=== PATIENT | female | born 1955 | race Caucasian/White ===

== ENCOUNTER → 2016-05-17 | Outpatient (CLI) | payer OTHER ==
[~2016-05-17] VITALS: Ht 157.5 cm; Wt 80.3 kg
[~2016-05-17] MED LIST: ATEN50TA2 PO; CLAR1TAB2 PO; LISI20TA PO; NS 1,000 ML IV SCH; PROBCAP4 PO; PROPOFOL 200 MG/20 ML VIAL As Ordered ONE; ZOFR20TA PO
--- NOTE | 2016-05-17 11:54 | ROOR ---
Patient Name: Aurora Mason Procedure Date: 05/17/2016 11:32 AM Date of : 1955 Age: 60 Room: [facility] Gender: Female Note Status: Finalized Procedure: Colonoscopy to Cecum Indications: Screening for colorectal malignant neoplasm Providers: Joe Clarke MD Referring MD: Kip Clayton MD Requesting Provider: Medicines: Monitored Anesthesia Care Complications: No immediate complications. Procedure: Pre-Anesthesia Assessment: - The heart rate, respiratory rate, oxygen saturations, blood pressure, adequacy of pulmonary ventilation, and response to care were monitored throughout the procedure. The Colonoscope was introduced through the anus and advanced to the cecum, identified by appendiceal orifice and ileocecal valve. The colonoscopy was performed without difficulty. The patient tolerated the procedure well. The quality of the bowel preparation was excellent. Findings: The perianal and digital rectal examinations were normal. Non-bleeding internal hemorrhoids were found during retroflexion. The hemorrhoids were small and Grade I (internal hemorrhoids that do not prolapse). No other significant abnormalities were identified in a careful examination of the remainder of the colon. The exam was otherwise without abnormality on direct and retroflexion views. Impression: - Non-bleeding internal hemorrhoids. - The examination was otherwise normal on direct and retroflexion views. - No specimens collected. - The exam was otherwise normal to the cecum. Recommendation: - Patient has a contact number available for emergencies. The signs and symptoms of potential delayed complications were discussed with the patient. Return to normal activities tomorrow. Written discharge instructions were provided to the patient. - High fiber diet. - Discharge patient to home. - Continue present medications. - Repeat colonoscopy in 10 years for screening purposes. - Return to referring physician. - The findings and recommendations were discussed with the patient's family. Joe Clarke MD Joe Clarke MD 05/17/2016 11:54:15 AM This report has been signed electronically. Number of Addenda: 0 Note Initiated On: 05/17/2016 11:32 AM Estimated Blood Loss: Estimated blood loss: none.
[2016-05-17 12:26] VITALS: BP 134/81
== END | disposition home or self-care (01) ==
LOC: M OPP 10:06
PROVIDERS: ATTEND Internal Medicine Gastroenterology
DX: Z12.11 Encounter for screening for malignant neoplasm of colon (principal); K64.0 First degree hemorrhoids; I10 Essential (primary) hypertension; R12 Heartburn; Z92.21 Personal history of antineoplastic chemotherapy; Z79.899 Other long term (current) drug therapy

== ENCOUNTER → 2016-08-03 | Outpatient (REF) | payer OTHER ==
[~2016-08-03] MED LIST changes: -NS 1,000 ML IV SCH; -PROPOFOL 200 MG/20 ML VIAL As Ordered ONE
== END ==
LOC: M LAB REF 12:57
PROVIDERS: ATTEND Internal Medicine Medical Oncology
DX: C54.1 Malignant neoplasm of endometrium (principal)

== ENCOUNTER → 2016-09-29 | Outpatient (REF) | payer OTHER | LOC: M LAB REF 16:56 | PROVIDERS: ATTEND Specialist | DX: Z12.4 Encounter for screening for malignant neoplasm of cervix (principal); R87.610 Atypical squamous cells of undetermined significance on cytologic smear of cervix (ASC-US) ==

== ENCOUNTER → 2016-10-21 | Outpatient (CLI) | payer OTHER ==
[~2016-10-21] MED LIST changes: +GASTROGRAFIN SOLUTION 30ML (Q9963) As Ordered ONE; +ISOVUE-370 76% 100ML VIAL (Q9967) As Ordered ONE
[2016-10-21 13:59] LABS: BASO % 0.5 % (0.0-1.0); EOS # 0.1 K/mm3 (0.0-0.50); EOS % 1.4 % (0.0-3.0); LARGE UNSTAINED CELL # 0.1 K/mm3 (0.0-0.4); LARGE UNSTAINED CELL % 1.5 % (0.0-4.0); LYMPH # 1.3 K/mm3 (1.5-4.5); LYMPH % 15.6 % (24.0-44.0); MEAN CORPUSCULAR HEMOGLOBIN 32.5 pg (27.0-33.0); MEAN CORPUSCULAR HGB CONC 34.1 g/dl (32.0-36.5); MEAN CORPUSCULAR VOLUME 95.1 fl (80.0-96.0); MONO # 0.3 K/mm3 (0.0-0.8); MONO % 3.9 % (0.0-5.0); PLATELET COUNT, AUTOMATED 231 k/mm3 (150-450); RED CELL DISTRIBUTION WIDTH 12.9 % (11.5-14.5); WHITE BLOOD COUNT 7.7 K/mm3 (4.0-10.0)
[2016-10-21 14:32] LABS: ALBUMIN 3.8 GM/DL (3.2-5.2); ALBUMIN/GLOBULIN RATIO 1.19 (1.00-1.93); BILIRUBIN,TOTAL 0.6 MG/DL (0.2-1.0); CALCIUM LEVEL 9.6 MG/DL (8.8-10.2); CREATININE FOR GFR 1.06 MG/DL (0.55-1.02); GLOMERULAR FILTRATION RATE 56.1 (>45); POTASSIUM SERUM 4.3 MEQ/L (3.5-5.1)
--- NOTE | 2016-10-22 05:32 | REP ---
Clinical: History of endometrial cancer for follow up. Technique: Axial contrast enhanced images from the thoracic inlet to the upper abdomen using 100 ml Isovue 370 intravenous contrast material with coronal and sagittal re-formations. Comparison: 04/27/2016. Findings: The bilateral lung cruz are relatively well aerated and essentially symmetric. No focal consolidation, obvious/definite nodule or mass lesion is appreciated. There is a small focal area of nodularity in the deep right lung base with adjacent interstitial changes and scarring. While findings may reflect chronic change, the soft tissue focus measures approximately 8 mm and may be slightly more prominent than prior examination. No pleural effusion. No pneumothorax. Tracheobronchial tree is patent. No obvious axillary, hilar, or mediastinal adenopathy. Mediastinum demonstrates normal thoracic aorta and heart/pericardium. Surrounding musculoskeletal structures are intact and normal for age. Impression: 1. Chronic-appearing age-related changes throughout the lung cruz without definite consolidation, mass or metastatic disease. No adenopathy. 2. A small focus of progressive scarring versus active lesion in the deep right lung base as described above. Given the patient's history of endometrial carcinoma, continued follow-up may be warranted. Signed by Surya Bolden MD 10/22/2016 05:25 A
--- NOTE | 2016-10-22 05:40 | REP ---
Clinical: Endometrial carcinoma for reevaluation and follow-up. Technique: Axial contrast enhanced images from the lung bases to the pubic symphysis new oozing oral and 100 ml Isovue 370 intravenous contrast material with pre and delayed images of the abdomen as well as coronal and sagittal re-formations. Comparison: 04/07/2016. Findings: Liver, spleen, pancreas, gallbladder, bilateral adrenal glands and kidneys appear normal. The enteric system is without obstruction or acute inflammatory process. Scattered colonic and sigmoid diverticula noted without acute diverticulitis. Pelvis demonstrates normal bladder and evidence for prior hysterectomy. Postsurgical granulation tissue in the midline anterior subcutaneous tissues is suggested and appears relatively similar to prior examination. No pelvic fluid or ascites. No obvious intraperitoneal or retroperitoneal adenopathy and no obvious pelvic sidewall adenopathy is appreciated. Subtle lymph node in the left inguinal canal / groin measures 12.2 mm and appears slightly more prominent than prior examination (image 133). Abdominal aorta and vasculature appears normal. Surrounding musculoskeletal structures are intact without focal osseous abnormality. Impression: 1. Postsurgical changes including stable granulation tissue in the anterior abdominal subcutaneous tissues. 2. Left inguinal/groin lymph node measuring 12.2 mm is slightly more prominent than prior examination and correlation/follow-up possibly with ultrasound may be warranted. 3. Scattered diverticula without acute diverticulitis. 4. No ascites, abdominal pelvic adenopathy, mass lesion or metastatic disease appreciated. Signed by Surya Bolden MD 10/22/2016 05:32 A
[2016-10-22 09:59] LABS: CA 125 14.6 U/ML (<30.2)
== END ==
LOC: M RAD 13:02
PROVIDERS: ATTEND Internal Medicine Medical Oncology
DX: C54.1 Malignant neoplasm of endometrium (principal)

== ENCOUNTER → 2017-01-21 | Outpatient (CLI) | payer OTHER ==
--- NOTE | 2017-01-21 13:58 | REP ---
CT of the chest with IV contrast: Comparison is the most repeat prior study of 10/21/2016. On the comparison study. There is a nodule in the deep sulcus of the right lung measuring 8 x 9 mm. On the study today this nodule measures 10 x 13 mm, therefore the possibility of lung metastasis is raised. Consider radionuclide PET scan. There are no other lung masses or nodules. There are no acute infiltrates or effusions. There is no mediastinal, hilar or axillary adenopathy. Thoracic aorta is unremarkable. Cardiac size is normal. There are no lytic, blastic or destructive skeletal changes. Impression: The patient's known nodule in the deep sulcus of the right lung continues to increase in size, suggestive of metastasis. Consider radionuclide PET scan. Signed by Jonathan Serrano MD 01/21/2017 01:49 P
--- NOTE | 2017-01-21 14:12 | REP ---
CT of the abdomen pelvis without and with IV contrast: After IV contrast dual phase scanning is performed during the arterial phase of enhancement and later during the equilibrium phase of enhancement. Comparisons are 10/21/2016 and 04/27/2016. The hepatic parenchyma is homogeneous on all phases of the study. The gallbladder, pancreas and spleen are unremarkable and unchanged. The adrenals, kidneys and abdominal aorta are unremarkable. There is no retroperitoneal adenopathy. No mesenteric adenopathy. No ascites. The bowel and mesentery are unremarkable. Pelvis: There is a hysterectomy. Vaginal cuff and adnexa are unremarkable. There is no adenopathy or ascites. The bladder is unremarkable. There are occasional diverticula in the sigmoid colon without diverticulitis. There is a left inguinal node today measuring 8 x 12 mm (9 x 12 mm of 10/21/2016 and 10 x 12 mm on 04/27/2016. Chronic stable postsurgical changes are again noted in the anterior pelvic wall. Impression: The patients left inguinal node appears stable in size. There is no evidence of adenopathy, ascites or metastatic disease. Signed by Jonathan Serrano MD 01/21/2017 02:03 P
== END ==
LOC: M RAD 11:05
PROVIDERS: ATTEND Internal Medicine Medical Oncology
DX: C54.1 Malignant neoplasm of endometrium (principal); R91.1 Solitary pulmonary nodule
CPT/HCPCS: 71260; 74178; 86304; Q9963; Q9967

== ENCOUNTER → 2017-01-26 | Outpatient (CLI) | payer OTHER ==
[~2017-01-26] MED LIST changes: -GASTROGRAFIN SOLUTION 30ML (Q9963) As Ordered ONE; -ISOVUE-370 76% 100ML VIAL (Q9967) As Ordered ONE
--- NOTE | 2017-01-30 09:47 | REP ---
Whole body PET CT scan: Comparison is the CT of the abdomen pelvis dated 01/21/2017. Whole-body scanning is performed from skull base to the upper thighs. Neck and supraclavicular areas: There are no hypermetabolic foci. Chest: There are no hypermetabolic foci. Abdomen, pelvis and upper thighs: There are no hypermetabolic foci. Impression: Negative whole-body PET CT scan. There are no hypermetabolic foci. The study is performed with 10 mCi of F 18 Signed by Jonathan Serrano MD 01/30/2017 09:38 A
== END ==
LOC: M PLARAD 09:16
PROVIDERS: ATTEND Internal Medicine Medical Oncology
DX: C54.9 Malignant neoplasm of corpus uteri, unspecified (principal); R91.1 Solitary pulmonary nodule
CPT/HCPCS: 78815; A9552

== ENCOUNTER → 2017-03-10 | Outpatient (REF) | payer OTHER | LOC: M LAB REF 17:21 | PROVIDERS: ATTEND Specialist | DX: R87.615 Unsatisfactory cytologic smear of cervix (principal) ==

== ENCOUNTER → 2017-05-09 | Outpatient (CLI) | payer OTHER ==
[~2017-05-09] MED LIST changes: -ATEN50TA2 PO; -CLAR1TAB2 PO; +GASTROGRAFIN SOLUTION 30ML (Q9963) As Ordered; +ISOVUE-370 76% 100ML VIAL (Q9967) As Ordered; -LISI20TA PO; -PROBCAP4 PO; -ZOFR20TA PO
[2017-05-09 10:25] LABS: BASO # 0.1 10^3/uL (0.0-0.2); BASO % 0.7 % (0.0-1.0); EOS # 0.2 10^3/uL (0.0-0.50); EOS % 2.5 % (0.0-3.0); HEMATOCRIT 39.9 % (36.0-47.0); HEMOGLOBIN 13.6 g/dl (12.0-16.0); IMMATURE GRANULOCYTE % 0.3 % (0-0); LYMPH % 14.5 % (24.0-44.0); MEAN CORPUSCULAR HEMOGLOBIN 32.2 pg (27.0-33.0); MEAN CORPUSCULAR HGB CONC 34.1 g/dl (32.0-36.5); MEAN CORPUSCULAR VOLUME 94.3 fl (80.0-96.0); MONO # 0.4 10^3/uL (0.0-0.8); MONO % 5.8 % (0.0-5.0); NEUTROPHILS # 5.3 10^3/uL (1.8-7.7); NEUTROPHILS % 76.2 % (36.0-66.0); PLATELET COUNT, AUTOMATED 259 10^3/uL (150-450); RED BLOOD COUNT 4.23 10^6/uL (4.00-5.40); RED CELL DISTRIBUTION WIDTH 11.6 % (11.5-14.5); WHITE BLOOD COUNT 6.9 10^3/uL (4.0-10.0)
[2017-05-09 10:53] LABS: ALBUMIN/GLOBULIN RATIO 1.18 (1.00-1.93); ALKALINE PHOSPHATASE 76 U/L (45-117); ALT/SGPT 21 U/L (12-78); ANION GAP 6 MEQ/L (8-16); AST/SGOT 14 U/L (7-37); BILIRUBIN,TOTAL 0.6 MG/DL (0.2-1.0); BLOOD UREA NITROGEN 19 MG/DL (7-18); CALCIUM LEVEL 9.4 MG/DL (8.8-10.2); CARBON DIOXIDE LEVEL 30 MEQ/L (21-32); CHLORIDE LEVEL 103 MEQ/L (98-107); CREATININE FOR GFR 1.09 MG/DL (0.55-1.02); GLOMERULAR FILTRATION RATE 54.1 (>45); GLUCOSE, FASTING 106 MG/DL (80-110); POTASSIUM SERUM 4.5 MEQ/L (3.5-5.1); SODIUM LEVEL 139 MEQ/L (136-145); TOTAL PROTEIN 7.4 GM/DL (6.4-8.2)
[2017-05-10 07:44] LABS: CA 125 14.9 U/ML (<30.2)
== END ==
LOC: M RAD 09:46
DX: C54.1 Malignant neoplasm of endometrium (principal)
CPT/HCPCS: Q9963

== ENCOUNTER → 2017-08-26 | Outpatient (REF) | payer OTHER ==
[2017-08-26 14:12] LABS: BASO # 0.1 10^3/uL (0.0-0.2); BASO % 0.8 % (0.0-1.0); EOS # 0.2 10^3/uL (0.0-0.50); EOS % 1.7 % (0.0-3.0); HEMATOCRIT 37.7 % (36.0-47.0); HEMOGLOBIN 13.1 g/dl (12.0-15.5); IMMATURE GRANULOCYTE % 0.3 % (0-3.0); LYMPH # 1.9 10^3/uL (1.5-4.5); LYMPH % 21.6 % (24.0-44.0); MEAN CORPUSCULAR HEMOGLOBIN 32.3 pg (27.0-33.0); MEAN CORPUSCULAR HGB CONC 34.7 g/dl (32.0-36.5); MEAN CORPUSCULAR VOLUME 92.9 fl (80.0-96.0); MONO # 0.6 10^3/uL (0.0-0.8); MONO % 6.7 % (0.0-5.0); NEUTROPHILS % 68.9 % (36.0-66.0); PLATELET COUNT, AUTOMATED 267 10^3/uL (150-450); RED BLOOD COUNT 4.06 10^6/uL (4.00-5.40); RED CELL DISTRIBUTION WIDTH 11.7 % (11.5-14.5); WHITE BLOOD COUNT 8.7 10^3/uL (4.0-10.0)
[2017-08-26 14:33] LABS: ALBUMIN/GLOBULIN RATIO 1.18 (1.00-1.93); ALKALINE PHOSPHATASE 87 U/L (45-117); ALT/SGPT 20 U/L (12-78); ANION GAP 7 MEQ/L (8-16); AST/SGOT 15 U/L (7-37); BILIRUBIN,TOTAL 0.6 MG/DL (0.2-1.0); BLOOD UREA NITROGEN 34 MG/DL (7-18); CALCIUM LEVEL 9.4 MG/DL (8.8-10.2); CARBON DIOXIDE LEVEL 28 MEQ/L (21-32); CHLORIDE LEVEL 104 MEQ/L (98-107); CREATININE FOR GFR 1.09 MG/DL (0.55-1.30); GLOMERULAR FILTRATION RATE 54.1 (>45); GLUCOSE, FASTING 115 MG/DL (70-100); POTASSIUM SERUM 4.4 MEQ/L (3.5-5.1); SODIUM LEVEL 139 MEQ/L (136-145); TOTAL PROTEIN 7.4 GM/DL (6.4-8.2)
[2017-08-26 15:00] LABS: CA 125 13.6 U/ML (<30.2)
== END ==
LOC: M LABDRWAD 13:47
DX: C54.1 Malignant neoplasm of endometrium (principal)

== ENCOUNTER → 2017-10-03 | Outpatient (REF) | payer OTHER ==
[2017-10-12 00:06] LABS: HPV HYBRID CAPTURE II Negative (Negative)
== END ==
LOC: M LAB REF 09:30
DX: C54.1 Malignant neoplasm of endometrium (principal)

== ENCOUNTER → 2017-12-27 | Outpatient (REF) | payer OTHER ==
[2017-12-27 13:50] LABS: BASO # 0.1 10^3/uL (0.0-0.2); EOS # 0.1 10^3/uL (0.0-0.50); EOS % 2.1 % (0.0-3.0); HEMATOCRIT 37.9 % (36.0-47.0); HEMOGLOBIN 12.9 g/dl (12.0-15.5); IMMATURE GRANULOCYTE % 0.3 % (0-3.0); LYMPH # 1.3 10^3/uL (1.5-4.5); LYMPH % 21.3 % (24.0-44.0); MEAN CORPUSCULAR HEMOGLOBIN 31.9 pg (27.0-33.0); MEAN CORPUSCULAR VOLUME 93.6 fl (80.0-96.0); MONO # 0.4 10^3/uL (0.0-0.8); MONO % 6.8 % (0.0-5.0); NEUTROPHILS # 4.3 10^3/uL (1.8-7.7); NEUTROPHILS % 68.5 % (36.0-66.0); PLATELET COUNT, AUTOMATED 251 10^3/uL (150-450); RED BLOOD COUNT 4.05 10^6/uL (4.00-5.40); RED CELL DISTRIBUTION WIDTH 11.9 % (11.5-14.5); WHITE BLOOD COUNT 6.2 10^3/uL (4.0-10.0)
[2017-12-27 14:12] LABS: ALBUMIN 3.7 GM/DL (3.2-5.2); ALBUMIN/GLOBULIN RATIO 1.09 (1.00-1.93); ALKALINE PHOSPHATASE 75 U/L (45-117); ALT/SGPT 17 U/L (12-78); ANION GAP 9 MEQ/L (8-16); AST/SGOT 12 U/L (7-37); BLOOD UREA NITROGEN 25 MG/DL (7-18); CALCIUM LEVEL 9.4 MG/DL (8.8-10.2); CARBON DIOXIDE LEVEL 27 MEQ/L (21-32); CHLORIDE LEVEL 105 MEQ/L (98-107); CREATININE FOR GFR 1.02 MG/DL (0.55-1.30); GLOMERULAR FILTRATION RATE 58.3 (>45); GLUCOSE, FASTING 105 MG/DL (70-100); POTASSIUM SERUM 4.4 MEQ/L (3.5-5.1); SODIUM LEVEL 141 MEQ/L (136-145); TOTAL PROTEIN 7.1 GM/DL (6.4-8.2)
[2017-12-28 08:00] LABS: CA 125 11.8 U/ML (<30.2)
== END ==
LOC: M LABDRWAD 12:26
DX: Z00.00 Encounter for general adult medical examination without abnormal findings (principal)
CPT/HCPCS: 80053

== ENCOUNTER → 2018-05-11 | Outpatient (CLI) | payer OTHER ==
[~2018-05-11] MED LIST changes: +ATEN50TA2 PO; +BILB500C PO; +CLAR1TAB2 PO; +FISH100042 PO; -GASTROGRAFIN SOLUTION 30ML (Q9963) As Ordered; +GASTROGRAFIN SOLUTION 30ML (Q9963) As Ordered ONE; -ISOVUE-370 76% 100ML VIAL (Q9967) As Ordered; +ISOVUE-370 76% 100ML VIAL (Q9967) As Ordered ONE; +LISI20TA PO; +PROBCAP4 PO; +TURM500C PO; +VITA500079 PO; +ZOFR4TAB16 PO
[2018-05-11 13:06] LABS: HEMATOCRIT 41.2 % (36.0-47.0); HEMOGLOBIN 13.8 g/dl (12.0-15.5); MEAN CORPUSCULAR HEMOGLOBIN 31.3 pg (27.0-33.0); MEAN CORPUSCULAR HGB CONC 33.5 g/dl (32.0-36.5); MEAN CORPUSCULAR VOLUME 93.4 fl (80.0-96.0); PLATELET COUNT, AUTOMATED 289 10^3/uL (150-450); RED BLOOD COUNT 4.41 10^6/uL (4.00-5.40); WHITE BLOOD COUNT 9.6 10^3/uL (4.0-10.0)
[2018-05-11 13:34] LABS: ALBUMIN 3.9 GM/DL (3.2-5.2); BILIRUBIN,TOTAL 0.8 MG/DL (0.2-1.0); CALCIUM LEVEL 9.6 MG/DL (8.8-10.2); CREATININE FOR GFR 1.16 MG/DL (0.55-1.30); GLOMERULAR FILTRATION RATE 50.2 (>45); POTASSIUM SERUM 4.3 MEQ/L (3.5-5.1); TOTAL PROTEIN 7.4 GM/DL (6.4-8.2)
--- NOTE | 2018-05-12 05:43 | REP ---
Clinical: History of endometrial carcinoma. Technique: Axial contrast enhanced images from the lung bases to the pubic symphysis using oral (per protocol) and 100 ml Isovue 370 intravenous contrast material with delayed images of the abdomen as well as coronal and sagittal re-formations. Comparison: 05/09/2017. Findings: Small focus of presumed scarring at the right lung base. Visualized heart and pericardium normal. Liver, spleen, pancreas, gallbladder, bilateral adrenal glands and kidneys are normal. The enteric system is without obstruction or acute inflammatory process. Pelvis demonstrates normal bladder and evidence of prior hysterectomy. No ascites. No adenopathy. No free air. No evidence for recurrence or focal mass lesion. Osseous structures demonstrate age-related changes without focal abnormality. Impression: 1. Minimal scarring at the right lung base. 2. Evidence of prior hysterectomy. 3. No evidence for recurrence or metastatic disease. No acute abdominopelvic pathology appreciated. Electronically Signed by Surya Bolden MD 05/12/2018 05:35 A
--- NOTE | 2018-05-12 05:52 | REP ---
Clinical: History of endometrial carcinoma. Technique: Axial contrast enhanced images from the thoracic inlet to the upper abdomen with coronal and sagittal re-formations using 100 ml Isovue 370 intravenous contrast material. Comparison: 05/09/2017. Findings: A subtle area of opacity is identified in the deep right posterior sulcus which appears slightly more prominent than recent prior examination but unchanged when compared to 10/21/2016 may represent small area of chronic scarring with superimposed transient atelectasis. The remainder of the lung cruz are well-aerated and clear. No further consolidation, significant nodule or mass lesion. No effusion. No pneumothorax. Tracheobronchial tree is patent. No axillary, hilar, or mediastinal adenopathy. Normal thoracic aorta, pulmonary vasculature and heart/pericardium noted. Surrounding musculoskeletal structures are intact and normal. Upper abdomen demonstrates normal bilateral adrenal glands. Impression: 1. Small focus of opacity at the site of prior scarring in the deep right posterior sulcus is essentially unchanged when compared to 10/21/2016 and likely represents an area of scarring with superimposed transient atelectasis. PET-CT in the interval between 10/21/2016 and 05/09/2017 was negative and without associated hypermetabolic activity. 2. Otherwise normal contrast enhanced chest CT without further mediastinal or pleuroparenchymal process. Electronically Signed by Surya Bolden MD 05/12/2018 05:44 A
[2018-05-12 10:40] LABS: CA 125 11.8 U/ML (<30.2)
== END ==
LOC: M RAD 12:02
PROVIDERS: ATTEND Internal Medicine Medical Oncology
DX: Z85.42 Personal history of malignant neoplasm of other parts of uterus (principal); J98.4 Other disorders of lung
CPT/HCPCS: 71260; 74177; 80053; 85027; 86304; Q9963; Q9967

== ENCOUNTER → 2018-05-24 | Outpatient (CLI) | payer OTHER ==
[~2018-05-24] MED LIST changes: -GASTROGRAFIN SOLUTION 30ML (Q9963) As Ordered ONE; -ISOVUE-370 76% 100ML VIAL (Q9967) As Ordered ONE
--- NOTE | 2018-05-24 09:34 | REPMRS ---
Patient History The patient states she has not had a clinical breast exam in over a year. Family history of breast cancer at age 50 or over in maternal cousin, prostate cancer at age 50 or over in father. Digital Mammo Screening Bilat: May 24, 2018 - Exam #: [id number] Bilateral CC and MLO view(s) were taken. Technologist: Nicole Meyer, Technologist No prior studies available for comparison. FINDINGS: There are scattered fibroglandular densities. There is no evidence of dominant mass, architectural distortion, or clustered microcalcification typical of malignancy. 3-D tomosynthesis shows no additional findings. Assessment: BI-RADS/ACR category 1 mammogram. Negative Mammogram. Recommendation Routine screening mammogram of both breasts in 1 year (for women over age 40). This patient's Lifetime Breast Cancer RIsk is estimated at 5.6 %. This mammogram was interpreted with the aid of an FDA-approved computer-aided dectection system. Electronically Signed By: Paramjit Perez MD 05/24/18 0933
== END ==
LOC: M RAD 08:32
PROVIDERS: ATTEND Internal Medicine Medical Oncology
DX: Z12.31 Encounter for screening mammogram for malignant neoplasm of breast (principal); Z85.42 Personal history of malignant neoplasm of other parts of uterus

== ENCOUNTER → 2018-11-06 | Outpatient (REF) | payer OTHER ==
[2018-11-06 12:43] LABS: HEMATOCRIT 39.5 % (36.0-47.0); HEMOGLOBIN 13.1 g/dl (12.0-15.5); MEAN CORPUSCULAR HGB CONC 33.2 g/dl (32.0-36.5); MEAN CORPUSCULAR VOLUME 96.6 fl (80.0-96.0); PLATELET COUNT, AUTOMATED 242 10^3/uL (150-450); RED BLOOD COUNT 4.09 10^6/uL (4.00-5.40); WHITE BLOOD COUNT 4.7 10^3/uL (4.0-10.0)
[2018-11-06 12:49] LABS: ALBUMIN 3.7 GM/DL (3.2-5.2); ALT/SGPT 15 U/L (12-78); BILIRUBIN,TOTAL 0.7 MG/DL (0.2-1.0); BLOOD UREA NITROGEN 23 MG/DL (7-18); CALCIUM LEVEL 9.5 MG/DL (8.8-10.2); CARBON DIOXIDE LEVEL 28 MEQ/L (21-32); CHLORIDE LEVEL 108 MEQ/L (98-107); CREATININE FOR GFR 0.99 MG/DL (0.55-1.30); GLOMERULAR FILTRATION RATE > 60.0 (>45); GLUCOSE, FASTING 103 MG/DL (70-100); POTASSIUM SERUM 4.5 MEQ/L (3.5-5.1); SODIUM LEVEL 142 MEQ/L (136-145); TOTAL PROTEIN 6.9 GM/DL (6.4-8.2)
[2018-11-07 09:02] LABS: CA 125 10.8 U/ML (<30.2)
== END ==
LOC: M LABDRWAD 12:13
PROVIDERS: ATTEND Internal Medicine Medical Oncology
DX: Z12.31 Encounter for screening mammogram for malignant neoplasm of breast (principal)

== ENCOUNTER → 2018-12-07 | Outpatient (REF) | payer OTHER ==
[~2018-12-07] MED LIST changes: -LISI20TA PO; +LISI20TA18 PO
[2018-12-09 14:10] LABS: HPV HYBRID CAPTURE II Negative (Negative)
== END ==
LOC: M LAB REF 17:14
PROVIDERS: ATTEND Specialist
DX: Z12.72 Encounter for screening for malignant neoplasm of vagina (principal); N95.2 Postmenopausal atrophic vaginitis

== ENCOUNTER → 2019-05-21 | Outpatient (REF) | payer OTHER ==
[~2019-05-21] MED LIST changes: -LISI20TA18 PO; +LISI20TA19 PO
[2019-05-21 17:19] LABS: BASO # 0.1 10^3/uL (0.0-0.2); BASO % 0.8 % (0.0-1.0); EOS # 0.2 10^3/uL (0.0-0.5); EOS % 1.7 % (0.0-3.0); HEMATOCRIT 38.8 % (36.0-47.0); HEMOGLOBIN 13.3 g/dl (12.0-15.5); LYMPH # 2.3 10^3/uL (1.5-5.0); LYMPH % 22.4 % (24.0-44.0); MEAN CORPUSCULAR HEMOGLOBIN 32.7 pg (27.0-33.0); MEAN CORPUSCULAR HGB CONC 34.3 g/dl (32.0-36.5); MEAN CORPUSCULAR VOLUME 95.3 fl (80.0-96.0); MONO # 0.7 10^3/uL (0.0-0.8); MONO % 6.3 % (0.0-5.0); NEUTROPHILS % 68.3 % (36.0-66.0); PLATELET COUNT, AUTOMATED 351 10^3/uL (150-450); RED BLOOD COUNT 4.07 10^6/uL (4.00-5.40); WHITE BLOOD COUNT 10.3 10^3/uL (4.0-10.0)
[2019-05-21 17:36] LABS: ALBUMIN 3.8 GM/DL (3.2-5.2); BILIRUBIN,TOTAL 0.9 MG/DL (0.2-1.0); CALCIUM LEVEL 9.3 MG/DL (8.8-10.2); CREATININE FOR GFR 1.01 MG/DL (0.55-1.30); GLOMERULAR FILTRATION RATE 58.7 (>45); POTASSIUM SERUM 4.3 MEQ/L (3.5-5.1); TOTAL PROTEIN 7.2 GM/DL (6.4-8.2)
[2019-05-22 10:54] LABS: CA 125 10.6 U/ML (<30.2)
== END ==
LOC: M LAB REF 16:13
PROVIDERS: ATTEND Nurse Practitioner Family
DX: Z85.42 Personal history of malignant neoplasm of other parts of uterus (principal)

== ENCOUNTER → 2019-05-28 | Outpatient (CLI) | payer OTHER ==
--- NOTE | 2019-05-28 13:16 | REPMRS ---
Patient History The patient states she has not had a clinical breast exam in over a year. Patient has history of endometrial cancer at age 59. Family history of breast cancer at age 50 or over in maternal cousin, prostate cancer at age 50 or over in father. 3D TOMOSYNTHESIS WAS PERFORMED. [facility] lifetime risk for breast cancer is 5.4%. Digital Mammo Screening Bilat: May 28, 2019 - Exam #: [id number] Bilateral CC and MLO view(s) were taken. Technologist: Nicole Meyer, Technologist Prior study comparison: May 24, 2018, bilateral digital mammo screening bilat performed at [facility]. FINDINGS: There are scattered fibroglandular densities. There has been no change in the appearance of the mammogram from the prior studies. There is a mild amount of residual fibroglandular tissue which is fairly symmetric. There is no interval development of dominant mass, architectural distortion, or clustered microcalcification suggestive of malignancy. Assessment: BI-RADS/ACR category 1 mammogram. Negative Mammogram. Recommendation Routine screening mammogram in 1 year (for women over age 40). This mammogram was interpreted with the aid of an FDA-approved computer-aided dectection system. Electronically Signed By: Jonathan Hernandez MD 05/28/19 [id number]
== END ==
LOC: M RAD 11:38
PROVIDERS: ATTEND Nurse Practitioner Family
DX: Z12.31 Encounter for screening mammogram for malignant neoplasm of breast (principal); Z85.42 Personal history of malignant neoplasm of other parts of uterus; Z80.3 Family history of malignant neoplasm of breast; Z80.42 Family history of malignant neoplasm of prostate

== ENCOUNTER → 2019-06-12 | Outpatient (CLI) | payer OTHER ==
[~2019-06-12] MED LIST changes: +ISOVUE-370 76% 100ML VIAL (Q9967) As Ordered ONE
--- NOTE | 2019-06-12 15:01 | REP ---
Clinical: History of uterine carcinoma. Technique: Axial contrast enhanced images from the thoracic inlet to the upper abdomen with coronal and sagittal re-formations using 75 ml Isovue 370 intravenous contrast material. Comparison: 05/11/2018. Findings: Areas of scarring primarily involving the right mid to lower lung zone, left lower lobe and deep posterior right sulcus remains stable. No new acute nodule, consolidation or mass. No pleural effusion. No pneumothorax. Tracheobronchial tree is patent. No significant adenopathy. Mediastinum demonstrates relatively normal thoracic aorta, pulmonary vasculature and heart/pericardium. Surrounding musculoskeletal structures are intact without focal acute abnormality. Limited upper abdomen demonstrates normal bilateral adrenal glands. Impression: Chronic stable scattered scarring. No acute mediastinal or pleuroparenchymal process. No evidence for metastatic disease. Electronically Signed by Surya Bolden MD 06/12/2019 02:51 P
== END ==
LOC: M RAD 14:22
PROVIDERS: ATTEND Internal Medicine Medical Oncology
DX: C54.9 Malignant neoplasm of corpus uteri, unspecified (principal)
CPT/HCPCS: 71260; Q9967

== ENCOUNTER → 2020-04-03 | Outpatient (REF) | payer MEDICARE, OTHER ==
[~2020-04-03] MED LIST changes: -ISOVUE-370 76% 100ML VIAL (Q9967) As Ordered ONE; -LISI20TA19 PO; +LISI20TA35 PO
== END ==
LOC: M SFHCWAGY 13:21
PROVIDERS: ATTEND Specialist
DX: Z12.4 Encounter for screening for malignant neoplasm of cervix (principal)
CPT/HCPCS: 87624; G0101; G0123

== ENCOUNTER → 2020-04-03 | Outpatient (CLI) | payer MEDICARE, OTHER | LOC: M WHC 11:48 | PROVIDERS: ATTEND Specialist | DX: Z53.9 Procedure and treatment not carried out, unspecified reason (principal); Z12.31 Encounter for screening mammogram for malignant neoplasm of breast ==

== ENCOUNTER → 2020-05-29 | Outpatient (CLI) | payer MEDICARE, MEDICAID ==
[~2020-05-29] MED LIST changes: +CALCCAP4 PO; +KP V1TAB PO; +MAGN400T14 PO
--- NOTE | 2020-05-29 17:05 | REPMRS ---
Patient History The patient states she had a clinical breast exam in April 2020. Family history of breast cancer at age 50 or over in maternal cousin, prostate cancer at age 50 or over in father. Digital Woman Screen Mammo: May 29, 2020 - Exam #: [id number] Bilateral CC and MLO view(s) were taken. Technologist: Nicole Meyer, Technologist Prior study comparison: May 28, 2019, bilateral digital mammo screening bilat, performed at [facility]. May 24, 2018, bilateral digital mammo screening bilat, performed at [facility]. FINDINGS: There are scattered fibroglandular densities. The Volpara volumetric breast density category is:B. There has been no change in the appearance of the mammogram from the prior studies. There is a mild amount of scattered fibroglandular density which is fairly symmetric. There is no interval development of dominant mass, architectural distortion, or grouped microcalcification suggestive of malignancy. 3-D tomosynthesis shows no additional findings. Assessment: BI-RADS/ACR category 1 mammogram. Negative Mammogram. Recommendation Routine screening mammogram of both breasts in 1 year (for women over age 40). This patient's [facility] Lifetime Breast Cancer Risk is estimated at 5.1 %. This mammogram was interpreted with the aid of an FDA-approved computer-aided dectection system. Electronically Signed By: Paramjit Perez MD 05/29/20 2157
== END ==
LOC: M WHC 13:55
PROVIDERS: ATTEND Specialist
DX: Z12.31 Encounter for screening mammogram for malignant neoplasm of breast (principal)

== ENCOUNTER → 2021-01-07 | Outpatient (CLI) | payer MEDICARE, MEDICAID ==
--- NOTE | 2021-01-07 14:41 | REP ---
INDICATION: PAIN IN LT KNEE AND RT ANKLE/FOOT HAS US 2ND TECHNIQUE: Five views FINDINGS: There is mild tricompartmental marginal osteophytosis and mild medial compartmental narrowing. There is no acute fracture, dislocation, or subluxation. IMPRESSION: Chronic changes as described above. <Electronically signed by Nishant Moss > 01/07/21 2008
--- NOTE | 2021-01-07 14:42 | REP ---
INDICATION: PAIN IN LT KNEE AND RT ANKLE/FOOT HAS US 2ND. COMPARISON: None. TECHNIQUE: Five views FINDINGS: There is moderate asymmetric joint space narrowing seen involving the 1st metatarsophalangeal joint with marginal osteophyte formation seen laterally. The remainder of the joint spaces are symmetric and relatively well maintained. There is no evidence of an acute fracture. There is a tiny plantar calcaneal heel spur. IMPRESSION: Chronic changes as described above. <Electronically signed by Nishant Moss > 01/07/21 0721
--- NOTE | 2021-01-07 15:31 | REP ---
INDICATION: R/O DVT XRAYS FIRST. COMPARISON: None. TECHNIQUE: Bilateral lower extremity duplex venous scanning is performed from the groin to the ankle level. FINDINGS: The deep veins are anechoic and fully compressible from the groin to the popliteal fossa in the left and right lower extremity. Color flow imaging is homogeneous. Spectral Doppler interrogation demonstrates intact respiratory variation in flow and normal manual augmentation of flow. There is no evidence of deep vein thrombosis in the femoropopliteal veins. The calf veins could not be visualized in either lower extremity due to patient body habitus and edema. IMPRESSION: No evidence of DVT in the femoropopliteal veins. <Electronically signed by Paramjit Perez > 01/07/21 [id number]
== END ==
LOC: M RAD 14:04
PROVIDERS: ATTEND Nurse Practitioner Family
DX: M79.661 Pain in right lower leg (principal); M79.662 Pain in left lower leg; M25.562 Pain in left knee; M25.571 Pain in right ankle and joints of right foot; M77.31 Calcaneal spur, right foot; M25.762 Osteophyte, left knee

== ENCOUNTER → 2021-03-23 | Outpatient (CLI) | payer MEDICAID, MEDICARE ==
--- NOTE | 2021-03-23 19:48 | ECHO ---
ECHOCARDIOGRAM DATE OF PROCEDURE: 03/23/2021 Age: Gender: Height: 157 cm Weight: 65.8 kg REFERRING PHYSICIAN: BERNARDO HOFFMANN MD INDICATION: Shortness of breath, localized edema unspecified, abnormal ECG. MEASUREMENTS: 2D Measurements: Aortic root 3.3 cm Left atrium 3.5 cm Left atrial volume index 17 Inferior septum 0.96 cm Posterior wall 0.83 cm Left ventricle diastole 4.1 cm LVOT 2.0 cm Inferior vena cava 1.5 cm Doppler Measurements: No aortic regurgitation Aortic valve velocity 143 cm/s LVOT velocity 108 cm/s LVOT VTI 24.4.0 cm Very mild mitral regurgitation Mitral E velocity 48.8 cm/s Mitral A velocity 78.4 cm/s Mitral deceleration time 264 msec Very mild tricuspid regurgitation Estimated right ventricular systolic pressure 23-28 mmHg Estimated right atrial pressure 5-10 mmHg Mild pulmonic regurgitation Pulmonary acceleration time 153 msec MITRAL ANNULAR TISSUE DOPPLER E prime septal 4.9 cm/s DESCRIPTION: Rhythm was sinus. Image quality was good. This was a 2D, M-mode, color flow Doppler, and pulsed wave Doppler examination including mitral annular tissue Doppler. No pericardial effusion. CONCLUSIONS: 1. Normal left ventricle internal dimensions and wall thickness. Normal regional LV wall motion and wall thickening. Normal LV systolic function. Grade 1 LV diastolic function. LVF 60% (3-D). 2. Mild aortic valve sclerosis of a 3-cusp aortic valve. No aortic regurgitation. 3. Otherwise normal-appearing echocardiogram and Doppler findings.
== END ==
LOC: M CARPUL 09:08
PROVIDERS: ATTEND Internal Medicine Cardiovascular Disease
DX: R06.02 Shortness of breath (principal); I35.8 Other nonrheumatic aortic valve disorders

== ENCOUNTER → 2022-08-16 | Outpatient (CLI) | payer MEDICARE, MEDICAID | LOC: M WHC 12:39 | PROVIDERS: ATTEND Student in an Organized Health Care Education/Training Program | DX: Z00.01 Encounter for general adult medical examination with abnormal findings (principal) ==

== ENCOUNTER → 2025-02-25 | Outpatient (CLI) | payer MEDICARE, MEDICAID ==
[2025-02-25 13:29] LABS: BASO # 0.0 10^3/uL (0.0-0.2); BASO % 0.7 % (0.0-1.0); EOS # 0.1 10^3/uL (0.0-0.5); EOS % 2.2 % (0.0-3.0); LYMPH # 1.6 10^3/uL (1.5-5.0); LYMPH % 26.8 % (24.0-44.0); MONO # 0.5 10^3/uL (0.0-0.8); MONO % 7.7 % (2.0-8.0); NEUTROPHILS # 3.6 10^3/uL (1.5-8.5); NEUTROPHILS % 62.3 % (36.0-66.0); PLATELET COUNT, AUTOMATED 258 10^3/uL (150-450)
[2025-02-25 13:36] LABS: ALT/SGPT 19.0 U/L (7.0-40); AST/SGOT 21.0 U/L (<34); CALCIUM LEVEL 10.2 MG/DL (8.3-10.6); CARBON DIOXIDE LEVEL 30.0 MMOL/L (20-31); CHLORIDE LEVEL 104.0 MMOL/L (98-107); CHOLESTEROL LEVEL 145.0 MG/DL (<200); CHOLESTEROL RISK RATIO 2.75 (<5); CREATININE FOR GFR 0.9 MG/DL (0.55-1.30); GLOMERULAR FILTRATION RATE 68.8 (>39); LDL CHOLESTEROL 65.1 MG/DL (<100); NON-HDL-C 92.3 MG/DL; POTASSIUM SERUM 4.6 MMOL/L (3.5-5.1); SODIUM LEVEL 143.0 MMOL/L (136-145); TRIGLYCERIDES LEVEL 136.0 MG/DL (<150)
[2025-02-25 13:39] LABS: TOTAL 25(OH) VITAMIN D 63.6 NG/ML (20.0-100.0)
[2025-02-25 14:01] LABS: ESTIMATED AVERAGE GLUCOSE 108.0 MG/DL (60-110)
== END ==
LOC: M LABDRWAD 09:01
PROVIDERS: ATTEND Nurse Practitioner Family
DX: E78.5 Hyperlipidemia, unspecified (principal); I10 Essential (primary) hypertension; R73.01 Impaired fasting glucose; Z79.899 Other long term (current) drug therapy